=== PATIENT | female | born 2000 | race Caucasian/White ===

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

== ENCOUNTER 2021-01-17 20:57 | Emergency (ER) | payer BC, MEDICAID | END 2021-01-17 22:15 | disposition left against medical advice (07) | LOC: JD.ED 20:57 | DX: Z53.21 Procedure and treatment not carried out due to patient leaving prior to being seen by health care provider (principal) ==

== ENCOUNTER 2021-01-17 22:42 | Emergency (ER) | payer BC, MEDICAID ==
--- NOTE | 2021-01-18 01:50 | EDM.PDOC ---
ED HPI GENERAL MEDICAL PROBLEM - General Chief Complaint: ENT Problem Stated Complaint: TOOTH ABCESS/MIGRAINE Time Seen by Provider: 01/18/21 01:29 - History of Present Illness INITIAL COMMENTS - FREE TEXT/NARRATIVE: Patient directed by private vehicle She has had pain associated with a left lower tooth for several months This is got progressively worse over the past few weeks She decided come to ED tonight for evaluation States she had seen a dental provider at some point and was advised that the tooth was She was recommended to have a root canal procedure, but could not afford it Has been taking Tylenol and ibuprofen for pain, without significant improvement Endorses occurrence of drainage from the tooth area Endorses occurrence of nausea and vomiting tonight Associated chills Left Lower Pain Score (Numeric/FACES): 10 - Related Data Allergies Allergy/AdvReac Type Severity Reaction Status Date / Time No Known Allergies Allergy Verified 01/17/21 23:07 Home Meds: Home Meds . [No Known Home Meds] 08/11/20 [History] Past Medical History - Past Health History Medical/Surgical History: Denies Medical/Surgical History [employer] History: Reports: , Other (See Below) Other RE[employer]IST [employer] History: ovarian cyst Psychiatric History: Reports: Depression, Other (See Below) Other Psychiatric History: anger - Infectious Disease History Infectious Disease History: Reports: None Social & Family History - Family History Family Medical History: No Pertinent Family History - Tobacco Use Tobacco Use Status *Q: Former Tobacco User Used Tobacco, but Quit: Yes Month/Year Tobacco Last Used: 07/2020 - Caffeine Use Caffeine Use: Reports: None - Recreational Drug Use Recreational Drug Use: Yes Recreational Drug Type: Reports: Marijuana/Hashish ED ROS GENERAL - Review of Systems Review Of Systems: See Below Constitutional: Reports: Chills HEENT: Reports: Dental Pain GI/Abdominal: Reports: Nausea, Vomiting ED EXAM, GENERAL - Physical Exam Exam: See Below Free Text/Narrative:: Constitutional - awake; alert; no acute distress Head - no facial swelling or weakness Eyes - extra ocular motion intact; conjunctiva normal ENT: - no nasal deformity; no epistaxis; normal phonation; mucus membranes moist - no mandibular swelling or tenderness - overall dentition fair; multiple molar and premolar fillings; tenderness on percussion left lower premolar (#20 tooth) with no adjacent gingival swelling or lesion Neck - no swelling Respiratory - normal respiratory effort Musculoskeletal - grossly normal strength and motion Skin - warm; dry Neurologic - normal speech; no weakness; gait intact Psychiatric - normal mood and affect; memory and attention normal Course - Vital Signs Text/Narrative:: . Considered etiologies included: Dental infection, dental abscess Symptoms and examination were discussed There was no indication for ED investigations She was offered a prescription for oral antibiotics, and seemed agreeable with this Need for dental follow-up was emphasized She stated that soonest appointment she has been offered during her inquiries was in March She was advised that an appointment with long wait was preferable to no treatmen t Patient suddenly became upset and got up from stretcher and indicated intention to leave Asked by script writer about antibiotic prescription discussed, she stated she did not want it as it would not help Patient left ED prior to discharge Last Recorded V/S: Last Vital Signs Temp 36.2 C 01/17/21 23:05 Pulse 112 H 01/17/21 23:05 Resp 18 01/17/21 23:05 BP 111/67 01/17/21 23:05 Pulse Ox 99 01/17/21 23:05 Departure - Departure Time of Disposition: 01:49 Disposition: Eloped 07 Clinical Impression: Pain, dental - Discharge Information *PRESCRIPTION DRUG MONITORING PROGRAM REVIEWED*: No *COPY OF PRESCRIPTION DRUG MONITORING REPORT IN PATIENT VIANEY: Not Applicable Sepsis Event Note (ED) - Evaluation Sepsis Screening Result: No Definite Risk
== END 2021-01-18 01:43 | disposition left against medical advice (07) ==
LOC: JD.ED 22:42
DX: K08.89 Other specified disorders of teeth and supporting structures (principal); Z87.891 Personal history of nicotine dependence
CPT/HCPCS: 99282; 99283

== ENCOUNTER 2023-01-16 10:52 | Emergency (ER) | payer MEDICAID ==
[2023-01-16 11:40] LABS: BASOPHILS ABSOLUTE AUTO 0.1 K/mm3 (0.0-0.2); BASOPHILS PERCENT AUTO 0.6 % (0.0-1.0); EOSINOPHILS ABSOLUTE AUTO 0.1 K/mm3 (0.0-0.4); HEMATOCRIT 41.1 % (37.0-47.0); HEMOGLOBIN 13.3 gm/dl (12.0-16.0); IMMATURE GRAN ABSOLUTE AUTO 0.02 K/mm3 (0.00-0.05); IMMATURE GRAN PERCENT AUTO 0.2 % (0.0-0.4); LYMPHOCYTES ABSOLUTE AUTO 3.1 K/mm3 (1.0-4.8); LYMPHOCYTES PERCENT AUTO 34.4 % (24.0-44.0); MEAN CORPUSCULAR HEMOGLOBIN 31.5 pg (28.0-32.0); MEAN CORPUSCULAR HGB CONC 32.4 g/dl (32.0-36.0); MEAN CORPUSCULAR VOLUME 97.4 fl (83.0-99.0); MEAN PLATELET VOLUME 10.2 fl (9.4-12.3); MONOCYTES ABSOLUTE AUTO 0.6 K/mm3 (0.0-0.8); MONOCYTES PERCENT AUTO 6.9 % (0.0-8.0); NEUTROPHILS ABSOLUTE AUTO 5.1 K/mm3 (1.8-7.7); NEUTROPHILS PERCENT AUTO 56.9 % (41.0-71.0); PLATELET COUNT,PLT 337 K/mm3 (150-400); RED BLOOD CELL COUNT 4.22 M/mm3 (4.10-5.30); WHITE BLOOD CELL COUNT,WBC 9.02 K/mm3 (3.9-11.3)
[2023-01-16 12:13] LABS: A/G RATIO 1.1 (1-2); ALANINE AMINOTRANSFERASE,ALT 18 U/L (14-59); ALBUMIN 3.9 g/dl (3.4-5.0); ALKALINE PHOSPHATASE 74 U/L (46-116); ASPARTATE AMNIOTRANSFERASE,AST 14 U/L (15-37); BILIRUBIN TOTAL 0.3 mg/dL (0.2-1.0); BLOOD UREA NITROGEN,BUN 12 mg/dL (7-18); BUN/CREATININE RATIO 17.1 (14-18); CALCIUM 9.1 mg/dL (8.5-10.1); CARBON DIOXIDE,CO2 28 mEq/L (21-32); CHLORIDE,CL 106 mEq/L (98-107); CREATININE 0.7 mg/dL (0.55-1.02); EST CRCL DRUG DOSING (CG) 123.63 mL/min; ESTIMATED GFR 126 mL/min (>60); GLUCOSE RANDOM 76 mg/dL (70-99); PROTEIN TOTAL,TP 7.5 g/dl (6.4-8.2); SODIUM,NA 141 mEq/L (136-145)
[2023-01-16 12:18] LABS: HCG QUANTITATIVE < 1.0 mIU/mL
== END 2023-01-16 12:51 | disposition home or self-care (01) ==
LOC: JD.ED 10:52
DX: N92.1 Excessive and frequent menstruation with irregular cycle (principal); N94.6 Dysmenorrhea, unspecified
CPT/HCPCS: 36415; 80053; 84702; 85025; 86850; 86900; 86901; 99284

== ENCOUNTER 2023-04-20 12:24 | Emergency (ER) | payer MEDICAID ==
[2023-04-20] MEDS ORDERED: Sodium Chloride 0.9% 10 ML Syringe FLUSH PRN (12:47)
[2023-04-20] MEDS ORDERED: Ondansetron 4 MG/2 ML SDV IVPUSH ONE (12:49)
[2023-04-20] MEDS ORDERED: Ketorolac 30 MG/ML SDV IVPUSH ONE (12:52)
[2023-04-20] MEDS ORDERED: diphenhydrAMINE 50 MG/ML SDV IVPUSH ONE (12:52)
[2023-04-20] MEDS ORDERED: Metoclopramide 10 MG/2 ML SDV IVPUSH ONE (12:52)
[2023-04-20] MEDS ORDERED: Lactated Ringers 1,000 ML IV SCH (13:00)
[2023-04-20 13:19] LABS: BASOPHILS ABSOLUTE AUTO 0.1 K/mm3 (0.0-0.2); BASOPHILS PERCENT AUTO 0.3 % (0.0-1.0); EOSINOPHILS ABSOLUTE AUTO 0.1 K/mm3 (0.0-0.4); EOSINOPHILS PERCENT AUTO 0.5 % (0.0-6.0); HEMATOCRIT 41.3 % (37.0-47.0); HEMOGLOBIN 13.5 gm/dl (12.0-16.0); IMMATURE GRAN ABSOLUTE AUTO 0.08 K/mm3 (0.00-0.05); IMMATURE GRAN PERCENT AUTO 0.5 % (0.0-0.4); LYMPHOCYTES ABSOLUTE AUTO 1.8 K/mm3 (1.0-4.8); LYMPHOCYTES PERCENT AUTO 12.1 % (24.0-44.0); MEAN CORPUSCULAR HEMOGLOBIN 31.3 pg (28.0-32.0); MEAN CORPUSCULAR HGB CONC 32.7 g/dl (32.0-36.0); MEAN CORPUSCULAR VOLUME 95.6 fl (83.0-99.0); MEAN PLATELET VOLUME 10.2 fl (9.4-12.3); MONOCYTES ABSOLUTE AUTO 0.9 K/mm3 (0.0-0.8); MONOCYTES PERCENT AUTO 5.8 % (0.0-8.0); NEUTROPHILS ABSOLUTE AUTO 12.2 K/mm3 (1.8-7.7); NEUTROPHILS PERCENT AUTO 80.8 % (41.0-71.0); PLATELET COUNT,PLT 365 K/mm3 (150-400); RED BLOOD CELL COUNT 4.32 M/mm3 (4.10-5.30); WHITE BLOOD CELL COUNT,WBC 15.12 K/mm3 (3.9-11.3)
[2023-04-20 13:41] LABS: ANION GAP 11.2 (5-15); BILIRUBIN TOTAL 0.5 mg/dL (0.2-1.0); BUN/CREATININE RATIO 14.3 (14-18); CALCIUM 8.9 mg/dL (8.5-10.1); CREATININE 0.7 mg/dL (0.55-1.02); EST CRCL DRUG DOSING (CG) 122.59 mL/min; POTASSIUM,K 4.2 mEq/L (3.5-5.1)
[2023-04-20 14:25] LABS: APPEARANCE,URINE CLEAR (Clear); BILIRUBIN,URINE NEGATIVE (Negative); COLOR,URINE YELLOW (Yellow); GLUCOSE,URINE NEGATIVE (Negative); KETONES,URINE NEGATIVE (Negative); LEUKOCYTE ESTERASE,URINE NEGATIVE (Negative); NITRITE,URINE NEGATIVE (Negative); OCCULT BLOOD,URINE NEGATIVE (Negative); PH,URINE 8.5 (5.0-8.0); PROTEIN,URINE 1+ (Negative); UROBILINOGEN,URINE 0.2 (0.2-1.0)
[2023-04-20 14:32] LABS: BACTERIA,URINE FEW /hpf (FEW); MUCUS,URINE FEW /hpf (FEW); RBC,URINE 0-5 /hpf (0-5); WBC,URINE 0-5 /hpf (0-5)
== END 2023-04-20 15:20 | disposition home or self-care (01) ==
LOC: JD.ED 12:24
DX: R51.9 Headache, unspecified (principal); F17.210 Nicotine dependence, cigarettes, uncomplicated; Z86.16 Personal history of COVID-19
CPT/HCPCS: 36415; 70450; 80053; 81001; 84703; 85025; 96374; 96375; 99285; J1200; J1885; J2765; J3490; J7120; 99284

== ENCOUNTER 2023-05-16 05:07 | Emergency (ER) | payer MEDICAID | END 2023-05-16 06:12 | disposition home or self-care (01) | LOC: EEVIPCON 05:07 → JD.ED 05:07 | DX: Z53.21 Procedure and treatment not carried out due to patient leaving prior to being seen by health care provider (principal) ==

== ENCOUNTER 2023-11-10 21:56 | Emergency (ER) | payer MEDICAID ==
[2023-11-10 22:18] LABS: APPEARANCE,URINE SLT CLOUDY (Clear); BILIRUBIN,URINE 1+ (Negative); COLOR,URINE YELLOW (Yellow); GLUCOSE,URINE NEGATIVE (Negative); KETONES,URINE 1+ (Negative); LEUKOCYTE ESTERASE,URINE 1+ (Negative); NITRITE,URINE NEGATIVE (Negative); OCCULT BLOOD,URINE NEGATIVE (Negative); PROTEIN,URINE 1+ (Negative)
[2023-11-10 22:36] LABS: BACTERIA,URINE MODERATE /hpf (FEW); MUCUS,URINE MODERATE /hpf (FEW); RBC,URINE 0-5 /hpf (0-5); WBC,URINE 0-5 /hpf (0-5)
[2023-11-10 22:40] LABS: BASOPHILS PERCENT AUTO 0.3 % (0.0-1.0); EOSINOPHILS PERCENT AUTO 0.2 % (0.0-6.0); HEMATOCRIT 38.6 % (37.0-47.0); HEMOGLOBIN 12.9 gm/dl (12.0-16.0); IMMATURE GRAN ABSOLUTE AUTO 0.03 K/mm3 (0.00-0.05); IMMATURE GRAN PERCENT AUTO 0.2 % (0.0-0.4); LYMPHOCYTES ABSOLUTE AUTO 3.9 K/mm3 (1.0-4.8); LYMPHOCYTES PERCENT AUTO 27.7 % (24.0-44.0); MEAN CORPUSCULAR HEMOGLOBIN 32.7 pg (28.0-32.0); MEAN CORPUSCULAR HGB CONC 33.4 g/dl (32.0-36.0); MEAN PLATELET VOLUME 10.4 fl (9.4-12.3); MONOCYTES ABSOLUTE AUTO 1.2 K/mm3 (0.0-0.8); MONOCYTES PERCENT AUTO 8.1 % (0.0-8.0); NEUTROPHILS PERCENT AUTO 63.5 % (41.0-71.0); PLATELET COUNT,PLT 334 K/mm3 (150-400); RED BLOOD CELL COUNT 3.94 M/mm3 (4.10-5.30); WHITE BLOOD CELL COUNT,WBC 14.21 K/mm3 (3.9-11.3)
[2023-11-11 00:18] LABS: A/G RATIO 1.2 (1-2); ALBUMIN 3.9 g/dl (3.4-5.0); ANION GAP 13.9 (5-15); BILIRUBIN TOTAL 0.6 mg/dL (0.2-1.0); BUN/CREATININE RATIO 14.3 (14-18); CALCIUM 9.3 mg/dL (8.5-10.1); CREATININE 0.7 mg/dL (0.55-1.02); EST CRCL DRUG DOSING (CG) 122.59 mL/min; MAGNESIUM 1.9 mg/dL (1.8-2.4); POTASSIUM,K 3.9 mEq/L (3.5-5.1); PROTEIN TOTAL,TP 7.3 g/dl (6.4-8.2)
[2023-11-11] MEDS: Cefdinir 300 MG Cap PO ONE (00:47)
== END 2023-11-11 01:03 | disposition home or self-care (01) ==
LOC: JD.ED 21:56
DX: O23.41 Unspecified infection of urinary tract in pregnancy, first trimester (principal); Z3A.01 Less than 8 weeks gestation of pregnancy; Z79.899 Other long term (current) drug therapy; Z86.16 Personal history of COVID-19
CPT/HCPCS: 36415; 80053; 81001; 83735; 84702; 85025; 87086; 99284; A9270; 99283

== ENCOUNTER 2024-01-22 15:45 | Emergency (ER) | payer MEDICAID ==
[2024-01-22 17:06] LABS: BASOPHILS PERCENT AUTO 0.3 % (0.0-1.0); EOSINOPHILS ABSOLUTE AUTO 0.1 K/mm3 (0.0-0.4); EOSINOPHILS PERCENT AUTO 0.7 % (0.0-6.0); HEMOGLOBIN 11.4 gm/dl (12.0-16.0); IMMATURE GRAN ABSOLUTE AUTO 0.04 K/mm3 (0.00-0.05); IMMATURE GRAN PERCENT AUTO 0.4 % (0.0-0.4); LYMPHOCYTES ABSOLUTE AUTO 2.7 K/mm3 (1.0-4.8); MEAN CORPUSCULAR HEMOGLOBIN 32.9 pg (28.0-32.0); MEAN CORPUSCULAR HGB CONC 33.5 g/dl (32.0-36.0); MEAN PLATELET VOLUME 10.8 fl (9.4-12.3); MONOCYTES ABSOLUTE AUTO 0.9 K/mm3 (0.0-0.8); MONOCYTES PERCENT AUTO 7.9 % (0.0-8.0); NEUTROPHILS ABSOLUTE AUTO 7.1 K/mm3 (1.8-7.7); NEUTROPHILS PERCENT AUTO 65.7 % (41.0-71.0); PLATELET COUNT,PLT 255 K/mm3 (150-400); RED BLOOD CELL COUNT 3.47 M/mm3 (4.10-5.30); WHITE BLOOD CELL COUNT,WBC 10.82 K/mm3 (3.9-11.3)
[2024-01-22 17:31] LABS: A/G RATIO 0.9 (1-2); ALKALINE PHOSPHATASE 51 U/L (46-116); ANION GAP 8.8 (5-15); ASPARTATE AMNIOTRANSFERASE,AST 12 U/L (15-37); BILIRUBIN TOTAL 0.2 mg/dL (0.2-1.0); BLOOD UREA NITROGEN,BUN 6 mg/dL (7-18); CALCIUM 8.6 mg/dL (8.5-10.1); CARBON DIOXIDE,CO2 25 mEq/L (21-32); CHLORIDE,CL 107 mEq/L (98-107); CREATININE 0.6 mg/dL (0.55-1.02); EST CRCL DRUG DOSING (CG) 143.02 mL/min; ESTIMATED GFR 130 mL/min (>60); GLUCOSE RANDOM 87 mg/dL (70-99); POTASSIUM,K 3.8 mEq/L (3.5-5.1); PROTEIN TOTAL,TP 6.5 g/dl (6.4-8.2); SODIUM,NA 137 mEq/L (136-145)
[2024-01-22 17:32] LABS: TROPONIN I HIGH SENSITIVITY < 4 pg/mL (<=51)
[2024-01-22 17:46] LABS: ALANINE AMINOTRANSFERASE,ALT 9 U/L (14-59)
[2024-01-22] MEDS: Acetaminophen 325 MG Tab PO ONE (18:31)
[2024-01-22] MEDS: Acetaminophen/HYDROcodone 325-5 MG Tab PO ONE (18:32)
== END 2024-01-22 19:10 | disposition home or self-care (01) ==
LOC: JD.ED 15:45
DX: R07.89 Other chest pain (principal); M25.511 Pain in right shoulder; F17.210 Nicotine dependence, cigarettes, uncomplicated; Z86.16 Personal history of COVID-19
CPT/HCPCS: 36415; 71045; 80053; 84484; 85025; 85379; 93005; 99285; A9270; 93010; 99284

== ENCOUNTER 2024-07-04 06:09 | Inpatient (IN) | payer MEDICAID ==
[~2024-07-04 06:09] MED LIST: Lidocaine 1.5% with EPINEPHrine 1:200,000 5 ML Amp ONE
[2024-07-04] MEDS ORDERED: Ondansetron 4 MG/2 ML SDV IVPUSH PRN (06:18)
[2024-07-04] MEDS ORDERED: Sodium Chloride 0.9% 10 ML Syringe FLUSH PRN (06:18)
[2024-07-04] MEDS ORDERED: Nalbuphine 10 MG/1 ML Vial IVPUSH PRN (06:18)
[2024-07-04] MEDS ORDERED: Lidocaine 1% 50 ML MDV INJECT PRN (06:18)
[2024-07-04] MEDS ORDERED: Oxytocin/0.9 % Sodium Chloride 30 UNIT/500 ML BAG IV SCH ×2 (06:30→07:45)
[2024-07-04 06:43] LABS: BASOPHILS PERCENT AUTO 0.3 % (0.0-1.0); EOSINOPHILS ABSOLUTE AUTO 0.1 K/mm3 (0.0-0.4); EOSINOPHILS PERCENT AUTO 0.8 % (0.0-6.0); HEMATOCRIT 34.1 % (37.0-47.0); IMMATURE GRAN ABSOLUTE AUTO 0.06 K/mm3 (0.00-0.05); IMMATURE GRAN PERCENT AUTO 0.5 % (0.0-0.4); LYMPHOCYTES ABSOLUTE AUTO 3.3 K/mm3 (1.0-4.8); LYMPHOCYTES PERCENT AUTO 25.9 % (24.0-44.0); MEAN CORPUSCULAR HEMOGLOBIN 30.4 pg (28.0-32.0); MEAN CORPUSCULAR HGB CONC 32.3 g/dl (32.0-36.0); MEAN CORPUSCULAR VOLUME 94.2 fl (83.0-99.0); MONOCYTES PERCENT AUTO 7.7 % (0.0-8.0); NEUTROPHILS ABSOLUTE AUTO 8.4 K/mm3 (1.8-7.7); NEUTROPHILS PERCENT AUTO 64.8 % (41.0-71.0); PLATELET COUNT,PLT 283 K/mm3 (150-400); RED BLOOD CELL COUNT 3.62 M/mm3 (4.10-5.30); WHITE BLOOD CELL COUNT,WBC 12.88 K/mm3 (3.9-11.3)
[2024-07-04] MEDS: Ampicillin 2 GM in Sodium Chloride 0.9% 100 ML IV SCH (07:36)
[2024-07-04] MEDS: Lactated Ringers 1,000 ML IV SCH (07:36)
[2024-07-04] MEDS: Oxytocin/0.9 % Sodium Chloride 30 UNIT/500 ML BAG IV SCH (07:50)
[2024-07-04] MEDS: Ampicillin 1 GM in Sodium Chloride 0.9% 50 ML IV SCH (11:34)
[2024-07-04] MEDS ORDERED: fentaNYL 100 MCG/2 ML SDV EPIDUR PRN (11:44)
[2024-07-04] MEDS ORDERED: diphenhydrAMINE 50 MG/ML SDV IVPUSH PRN (11:44)
[2024-07-04] MEDS ORDERED: ePHEDrine 50 MG/ML SDV IVPUSH PRN (11:44)
[2024-07-04] MEDS: Bupivacaine/fentaNYL/NS 100 ML Bag EPIDUR PRN (11:52)
[2024-07-04] MEDS: Ibuprofen 600 MG Tab PO SCH (22:00)
[2024-07-04] MEDS: Benzocaine/Menthol 20%-0.5% Spray 78 GM Cannister TOP PRN (22:01)
[2024-07-04] MEDS: Witch Hazel Medicated Pads 40/Jar TOP PRN (22:02)
[2024-07-05] MEDS: Acetaminophen 325 MG Tab PO PRN (11:11)
== END 2024-07-05 21:14 | disposition home or self-care (01) | DRG 807 ==
LOC: JD.OB 06:09 → OBSVTOIN 19:50 → JD.OB 19:51
PROVIDERS: ADMIT Obstetrics & Gynecology; ATTEND Obstetrics & Gynecology
PROC: 10907ZC Drainage of Amniotic Fluid, Therapeutic from Products of Conception, Via Natural or Artificial Opening (ICD-10-PCS; principal; 2024-07-04)
PROC: 3E033VJ Introduction of Other Hormone into Peripheral Vein, Percutaneous Approach (ICD-10-PCS; principal; 2024-07-04)
PROC: 10E0XZZ Delivery of Products of Conception, External Approach (ICD-10-PCS; principal; 2024-07-04)
PROC: 3E0R3BZ Introduction of Anesthetic Agent into Spinal Canal, Percutaneous Approach (ICD-10-PCS; principal; 2024-07-04)
DX: O99.344 Other mental disorders complicating childbirth (principal); Z37.0 Single live birth; Z3A.39 39 weeks gestation of pregnancy; Z86.16 Personal history of COVID-19
CPT/HCPCS: 01967; 36415; 51701; 59025; 59409; 85025; 86592; 86850; 86900; 86901; A9270-GY; J0290; J3490; J7120; J7999

== ENCOUNTER 2024-07-30 01:53 | Emergency (ER) | payer MEDICAID ==
[2024-07-30 02:13] LABS: BASOPHILS ABSOLUTE AUTO 0.1 K/mm3 (0.0-0.2); BASOPHILS PERCENT AUTO 0.5 % (0.0-1.0); EOSINOPHILS ABSOLUTE AUTO 0.1 K/mm3 (0.0-0.4); EOSINOPHILS PERCENT AUTO 1.3 % (0.0-6.0); HEMATOCRIT 37.7 % (37.0-47.0); HEMOGLOBIN 12.7 gm/dl (12.0-16.0); IMMATURE GRAN ABSOLUTE AUTO 0.04 K/mm3 (0.00-0.05); IMMATURE GRAN PERCENT AUTO 0.4 % (0.0-0.4); LYMPHOCYTES ABSOLUTE AUTO 4.9 K/mm3 (1.0-4.8); LYMPHOCYTES PERCENT AUTO 44.5 % (24.0-44.0); MEAN CORPUSCULAR HEMOGLOBIN 30.8 pg (28.0-32.0); MEAN CORPUSCULAR HGB CONC 33.7 g/dl (32.0-36.0); MEAN CORPUSCULAR VOLUME 91.3 fl (83.0-99.0); MEAN PLATELET VOLUME 10.6 fl (9.4-12.3); MONOCYTES ABSOLUTE AUTO 0.7 K/mm3 (0.0-0.8); MONOCYTES PERCENT AUTO 6.2 % (0.0-8.0); NEUTROPHILS ABSOLUTE AUTO 5.2 K/mm3 (1.8-7.7); NEUTROPHILS PERCENT AUTO 47.1 % (41.0-71.0); PLATELET COUNT,PLT 407 K/mm3 (150-400); RED BLOOD CELL COUNT 4.13 M/mm3 (4.10-5.30); WHITE BLOOD CELL COUNT,WBC 10.96 K/mm3 (3.9-11.3)
[2024-07-30 02:30] LABS: INR 1.02; PROTHROMBIN TIME 10.8 SECONDS (9.7-12.0)
[2024-07-30] MEDS: Sodium Chloride 0.9% 1,500 ML IV ONE (02:34)
[2024-07-30 02:35] LABS: A/G RATIO 0.9 (1-2); ALANINE AMINOTRANSFERASE,ALT 21 U/L (14-59); ALBUMIN 3.5 g/dl (3.4-5.0); ALKALINE PHOSPHATASE 109 U/L (46-116); ANION GAP 14.9 (5-15); ASPARTATE AMNIOTRANSFERASE,AST 26 U/L (15-37); BILIRUBIN TOTAL 0.2 mg/dL (0.2-1.0); BLOOD UREA NITROGEN,BUN 8 mg/dL (7-18); CALCIUM 8.6 mg/dL (8.5-10.1); CARBON DIOXIDE,CO2 23 mEq/L (21-32); CHLORIDE,CL 106 mEq/L (98-107); CREATININE 0.8 mg/dL (0.55-1.02); EST CRCL DRUG DOSING (CG) 106.36 mL/min; ESTIMATED GFR 106 mL/min (>60); ETHANOL BLOOD MEDICAL 0.17 gm% (0.00); GLUCOSE RANDOM 97 mg/dL (70-99); LIPASE 37 U/L (16-77); MAGNESIUM 1.8 mg/dL (1.8-2.4); POTASSIUM,K 2.9 mEq/L (3.5-5.1); PROTEIN TOTAL,TP 7.6 g/dl (6.4-8.2); SODIUM,NA 141 mEq/L (136-145)
[2024-07-30 02:37] LABS: TROPONIN I HIGH SENSITIVITY < 4 pg/mL (<=51)
[2024-07-30 02:38] LABS: ACETAMINOPHEN 0 ug/mL (10-30)
[2024-07-30 02:46] LABS: BARBITURATE SCREEN,URINE NEGATIVE (CUTOFF=200); BENZODIAZEPINES SCREEN,URINE NEGATIVE (CUTOFF=150); BUPRENORPHINE SCREEN,URINE NEGATIVE (CUTOFF=10); METHADONE SCREEN, URINE NEGATIVE (CUTOFF=200); METHAMPHETAMINES SCREEN, URINE NEGATIVE (CUTOFF=500); OXYCODONE SCREEN,URINE NEGATIVE (CUT0FF=100); THC SCREEN,URINE 20 NG/ML NEGATIVE (CUTOFF=50)
[2024-07-30] MEDS ORDERED: Potassium Chloride 10 MEQ in Premix Bag 1 BAG IV ONE (03:06)
[2024-07-30 03:12] LABS: AMPHETAMINES SCREEN, URINE NEGATIVE (CUTOFF=500)
[2024-07-30] MEDS: Potassium Chloride 10 MEQ in Premix Bag 1 BAG IV ONE ×2 (03:23→04:14)
[2024-07-30] MEDS: Potassium Chloride 20 MEQ Tab.ER PO ONE (03:23)
== END 2024-07-30 06:32 | disposition home or self-care (01) ==
LOC: JD.ED 01:53
DX: F10.121 Alcohol abuse with intoxication delirium (principal); R45.87 Impulsiveness; R45.851 Suicidal ideations; Z86.16 Personal history of COVID-19; Y90.0 Blood alcohol level of less than 20 mg/100 ml
CPT/HCPCS: 36415; 80053; 80143; 80179; 80306; 80307; 81025; 83690; 83735; 84484; 85025; 85610; 93005; 96361; 96365; 96366; 99285; A9270; J3480; J7030; 93010